=== PATIENT | female | born 1975 | race Caucasian/White ===

== ENCOUNTER 2017-09-01 21:28 | Inpatient (IN) | payer BC ==
[2017-09-01] MEDS ORDERED: NITROSTAT SL PRN (22:23)
[2017-09-01] MEDS ORDERED: PEPCID 20 MG IV PREMIX* 20 MG/50 ML BAG IV ONE (22:23)
--- NOTE | 2017-09-01 22:25 | DR.GENAD ---
HPI - PCP Primary Care Physician: ADDIE - HPI Comment HPI Comment: NAUSEA AND VOMITING ALSO. HAVE DM AND HTN. NO FEVER. - Complaint/Symptoms Chief Complaint Doctors Comments: PATIENT WITH CHEST AND EPIGASTRIC PAIN THAT IS WORSE TONIGHT. Chief Complaint:: CHEST/EPIGASTRIC PAIN - Nurses notes reviewed Nurses Notes Review: Yes - Source History Provided: Patient - Mode of Arrival Mode of Arrival: Ambulatory - Timing Onset of Chief Complaint: 09/01/17 Came on: Suddenly - Duration Duration: Constant Duration: Hours PMH - PMH Past Medical History: Yes Past Medical History: Depression, Diabetes, Hypertension Past Surgical History: Yes Surgical History: , OUTPATIENT PHYSICAL THERAPIST ASSISTANT Surgery, Lithotripsy - Family History History of Family Medical Conditions: Yes Family Medical History: Diabetes Mellitus, [place], Coronary Artery Disease, Hypertension - Social History Does patient currently use any type of tobacco product: Yes Have you used tobacco products in the last 12 months: Yes Type of Tobacco Use: Cigarettes Does any household member use tobacco: No Alcohol Use: Occasionally Do you use any recreational Drugs:: No Lives With: Family Lives Where: Home - infectious screening In the last 2 months have you had wt loss of >10#?: NO Have you had fever, night sweats or hemotysis?: No Have you traveled outside the country in the last 6 months?: No Isolation: Standard ROS - Review of Systems Constitutional: No Symptoms Reported Eyes: No Symptoms Reported ENTM: No Symptoms Reported Respiratoy: No Symptoms Reported Cardiovascular: Chest Pain Gastrointestinal/Abdominal: Abdominal Pain, Nausea Genitourinary: No Symptoms Reported Neurological: No Symptoms Reported Musculoskeletal: No Symptoms Reported Integumentary: No Symptoms Reported Hematologic/Lymphatic: No Symptoms Reported Endocrine: No Symptoms Reported All Other Systems: Reviewed and Negative PE - Vital Signs Vitals: Temperature 98.2 F Pulse Rate [Left Radial] 97 Pulse Rate 108 Respiratory Rate 16 Blood Pressure [Left Arm] 146/75 Blood Pressure 175/98 O2 Sat by Pulse Oximetry 96 - General Limitations: No Limitations General Appearance: Alert - Head Head Exam: Normal Inspection - Eyes Eye exam: Normal Appearance - ENT ENT Exam: Normal External Ear Exam External Ear Exam: Normal External Inspection TM/Canal Exam: Bilateral Normal Nose Exam: Normal Nose Exam Mouth Exam: Normal Inspection Throat Exam: Normal Inspection - Neck Neck Exam: Trachea Midline - Respiratory Respiratory Exam: Normal Lung Sounds Bilat Respiratory Exam: Bilateral Clear to Auscultation - Cardiovascular Cardiovascular Exam: Regular Rate, Normal Rhythm, Normal Heart Sounds - Abdominal Exam Abdominal Exam: Normal Bowel Sounds, Soft, Tenderness Abdominal Tenderness: Epigastrium, Moderate - Extremities Extremities Exam: Normal Inspection - Back Back Exam: Normal Inspection - Neurologic Neurological Exam: Alert, Oriented X3 - Psychiatric Psychiatric Exam: Normal Affect, Normal Mood - Skin Skin Exam: Normal Color MDM - Additional Information Additional Information Obtained From: Family - Differential Diagnosis Differential Diagnosis: CHEST PAIN, EPIGASTRIC PAIN Course - Treatment Treatment: SEE ORDERS. - Education/Counseling Education/Counseling: Patient, Family, Education Educated On: Diagnosis, Needs for Follow Up ROR - Labs Reviewed Laboratory Results Reviewed?: Yes Result Diagrams: 09/02/17 06:14 09/02/17 06:14 Laboratory: WBC 11.3 X10^3/uL (3.6-10.0) H 09/02/17 06:14 RBC 4.31 X10^6/uL (3.5-5.4) 09/02/17 06:14 Hgb 13.7 g/dL (12.0-16.0) 09/02/17 06:14 Hct 38.6 % (36.0-47.0) 09/02/17 06:14 MCV 89.5 fL (80.0-100.0) 09/02/17 06:14 MCH 31.8 pg (27.0-34.0) 09/02/17 06:14 MCHC 35.5 g/dL (33.0-35.0) H 09/02/17 06:14 RDW 12.7 % (11.6-16.5) 09/02/17 06:14 Plt Count 253 X10^3/uL (150.0-450.0) 09/02/17 06:14 MPV 7.9 fL (7.4-11.0) 09/02/17 06:14 Neut % 73.1 % (42.0-75.0) 09/02/17 06:14 Lymph % 20.1 % (21.0-51.0) L 09/02/17 06:14 [place] % 5.3 % (0.0-13.0) 09/02/17 06:14 Eos % 0.9 % (0.9-2.9) 09/02/17 06:14 Baso % 0.6 % (0.2-1.0) 09/02/17 06:14 Neut # 8.2 x10^3/uL (2.2-4.8) H 09/02/17 06:14 Lymph # 2.3 X10^3/uL (1.3-2.9) 09/02/17 06:14 [place] # 0.6 x10^3/uL (0.3-0.8) 09/02/17 06:14 Eos # 0.1 x10^3/uL (0.0-0.2) 09/02/17 06:14 Baso # 0.1 X10^3/uL (0.0-0.1) 09/02/17 06:14 Absolute Nucleated RBC 0.0 /100WBC 09/02/17 06:14 INR Target Range - 09/02/17 06:14 INR 1.02 (0.8-1.3) 09/02/17 06:14 PTT 27.9 SECONDS (22.9-36.5) 09/02/17 06:14 PTT Comment - 09/02/17 06:14 D-Dimer 165 ng/mL (0-400) 09/01/17 22:34 Sodium 137 mmol/L (136-145) 09/02/17 06:14 Corrected Sodium 139 mmol/L (136-145) 09/02/17 06:14 Potassium 3.5 mmol/L (3.5-5.1) 09/02/17 06:14 Chloride 103 mmol/L (98-107) 09/02/17 06:14 Carbon Dioxide 23.4 mmol/L (21-32) 09/02/17 06:14 BUN 8 mg/dL (7-18) 09/02/17 06:14 Creatinine 0.56 mg/dL (0.55-1.02) 09/02/17 06:14 Est GFR (MDRD) Af Amer > 60 (>60) 09/02/17 06:14 Est GFR (MDRD) Non-Af > 60 (>60) 09/02/17 06:14 Glucose 203 mg/dL (65-99) H 09/02/17 06:14 Calcium 7.8 mg/dL (8.5-10.1) L 09/02/17 06:14 Corrected Calcium 8.5 mg/dL (8.5-10.1) 09/02/17 06:14 Magnesium 1.9 mg/dL (1.7-2.9) 09/01/17 22:34 Total Bilirubin 0.40 mg/dL (0.2-1.0) 09/02/17 06:14 AST < 6 Units/L (15-37) L 09/02/17 06:14 ALT 10 Units/L (12-78) L 09/02/17 06:14 Alkaline Phosphatase 51 Units/L (46-116) 09/02/17 06:14 Creatine Kinase 65 Units/L (26-192) 09/02/17 11:20 CK-MB (CK-2) 1.0 ng/mL (0-4.0) 09/02/17 11:20 CK/CKMB % Calc 1.5 % (<4) 09/02/17 11:20 Troponin I < 0.02 ng/mL (0-1.5) 09/02/17 11:20 Total Protein 6.3 g/dL (6.4-8.2) L 09/02/17 06:14 Albumin 3.1 g/dL (3.4-5.0) L 09/02/17 06:14 Globulin 3.2 g/dL (2.5-4.5) 09/02/17 06:14 Albumin/Globulin Ratio 1.0 Ratio (1.1-2.1) L 09/02/17 06:14 Triglycerides 548 mg/dL (0-150) H 09/02/17 06:14 Cholesterol 248 mg/dL (0-200) H 09/02/17 06:14 LDL Cholesterol, Calc 112 mg/dL (0-100) H 09/02/17 06:14 HDL Cholesterol 26 mg/dL (40-60) L 09/02/17 06:14 Cholesterol/HDL Ratio 9.5 (0.0-5.0) H 09/02/17 06:14 Amylase 135 Units/L (25-115) H 09/01/17 22:34 Lipase 1725 Units/L (73-393) H 09/01/17 22:34 Specimen Type Clean catch urine 09/01/17 23:41 Urine Color Yellow (YELLOW) 09/01/17 23:41 Urine Appearance Clear (CLEAR) 09/01/17 23:41 Urine pH 5.0 (5.0 - 8.0) 09/01/17 23:41 Ur Specific [place] 1.015 (1.000-1.030) 09/01/17 23:41 Urine Protein 1+ (NEGATIVE) 09/01/17 23:41 Urine Glucose (UA) Negative (NEGATIVE) 09/01/17 23:41 Urine Ketones Negative (NEGATIVE) 09/01/17 23:41 Urine Occult Blood Negative (NEGATIVE) 09/01/17 23:41 Urine Nitrite Negative (NEGATIVE) 09/01/17 23:41 Urine Bilirubin Negative (NEGATIVE) 09/01/17 23:41 Urine Urobilinogen Normal (NORMAL) 09/01/17 23:41 Ur Leukocyte Esterase 3+ (NEGATIVE) 09/01/17 23:41 Urine RBC 0-3 /HPF (NEGATIVE) 09/01/17 23:41 Urine WBC 5-10 /HPF (NEGATIVE) 09/01/17 23:41 Ur Squamous Epith Cells Moderate /HPF (NEGATIVE) 09/01/17 23:41 Urine Bacteria 1+ /HPF (NEGATIVE) 09/01/17 23:41 Ur Culture Indicated? Yes/culture set up 09/01/17 23:41 Acetone, Semi-Quant Negative (NEGATIVE) 09/02/17 01:22 H. pylori IgG Antibody Negative (NEGATIVE) 09/01/17 22:34 - XRAY XRAY Interpreted by: Radiologist XRAY Findings: REPORT DICUSS WITH PATIENT. - EKG Rhythm: NSR (EKG NOTED) - Diagnosis Discharge Problem: Epigastric pain Chest pain Qualifiers: Chest pain type: unspecified Qualified Code(s): R07.9 - Chest pain, unspecified UTI (urinary tract infection) Qualifiers: Urinary tract infection type: site unspecified Hematuria presence: without hematuria Qualified Code(s): N39.0 - Urinary tract infection, site not specified Pancreatitis Qualifiers: Chronicity: acute Pancreatitis type: unspecified pancreatitis type Acute pancreatitis complication: unspecified Qualified Code(s): K85.90 - Acute pancreatitis without necrosis or infection, unspecified - Discharge Plan Disposition: ADMITTED INPATIENT Condition: Stable - Follow ups/Referrals - Instructions
[2017-09-01 22:42] LABS: BASOPHILS # (AUTO) 0.1 X10^3/uL (0.0-0.1); EOSINOPHILS # (AUTO) 0.1 x10^3/uL (0.0-0.2); EOSINOPHILS % (AUTO) 0.8 % (0.9-2.9)
[2017-09-01] MEDS: ASPIRIN 81 MG CHEWTAB PO SCH (22:44)
--- NOTE | 2017-09-01 22:53 | RAD ---
Indication: Chest pain Exam: Portable chest Comparison: None. Findings: The heart is normal. The pulmonary vessels are normal. There is overlying EKG lead artifact . No consolidation or effusion is seen. The bones are intact. Impression: Overlying EKG lead artifact otherwise, unremarkable. Reported By:
[2017-09-01 22:59] LABS: BLOOD UREA NITROGEN 7 mg/dL (7-18); CALCIUM 7.9 mg/dL (8.5-10.1); CARBON DIOXIDE 17.9 mmol/L (21-32); CHLORIDE 100 mmol/L (98-107); COR NA(FOR HYPERGLY) 138 mmol/L (136-145); CREATININE 0.62 mg/dL (0.55-1.02); SODIUM 136 mmol/L (136-145); TROPONIN I < 0.02 ng/mL (0-1.5); eGFR BLACK RACES > 60 (>60); eGFR NON BLACK RACES > 60 (>60)
[2017-09-01 23:01] LABS: BASOPHILS % (AUTO) 0.6 % (0.2-1.0); HEMATOCRIT 41.3 % (36.0-47.0); HEMOGLOBIN 14.8 g/dL (12.0-16.0); LYMPHOCYTES # (AUTO) 2.6 X10^3/uL (1.3-2.9); LYMPHOCYTES % (AUTO) 18.5 % (21.0-51.0); MEAN CORPUSCULAR HEMOGLOBIN 32.1 pg (27.0-34.0); MEAN CORPUSCULAR HGB CONC 35.9 g/dL (33.0-35.0); MEAN CORPUSCULAR VOLUME 89.4 fL (80.0-100.0); MEAN PLATELET VOLUME 8.1 fL (7.4-11.0); MONOCYTES # (AUTO) 0.6 x10^3/uL (0.3-0.8); MONOCYTES % (AUTO) 4.4 % (0.0-13.0); NEUTROPHILS # (AUTO) 10.6 x10^3/uL (2.2-4.8); NEUTROPHILS % (AUTO) 75.7 % (42.0-75.0); PLATELET COUNT 270 X10^3/uL (150.0-450.0); RED BLOOD COUNT 4.62 X10^6/uL (3.5-5.4); RED CELL DISTRIBUTION WIDTH 12.2 % (11.6-16.5)
[2017-09-01 23:03] LABS: ALBUMIN 3.4 g/dL (3.4-5.0); ALKALINE PHOSPHATASE 60 Units/L (46-116); CKMB % 1.5 % (<4); CREATINE KINASE 81 Units/L (26-192); CREATINE KINASE MB 1.2 ng/mL (0-4.0); TOTAL PROTEIN 6.7 g/dL (6.4-8.2)
[2017-09-01] MEDS ORDERED: MORPHINE SULFATE INJ 4 MG IVP ONE (23:38)
[2017-09-01] MEDS ORDERED: ZOFRAN INJ 4 MG VIAL IVP ONE (23:38)
[2017-09-01 23:49] LABS: AMYLASE 135 Units/L (25-115)
[2017-09-01 23:50] LABS: LIPASE 1725 Units/L (73-393)
[2017-09-02 00:22] LABS: BILIRUBIN,URINE NEGATIVE (NEGATIVE); BLOOD/HEMOGLOBIN,URINE NEGATIVE (NEGATIVE); GLUCOSE, URINE NEGATIVE (NEGATIVE); KETONES,URINE NEGATIVE (NEGATIVE); LEUKOCYTE ESTERASE ,URINE 3+ (NEGATIVE); NITRITES,URINE NEGATIVE (NEGATIVE); PROTEIN,URINE 1+ (NEGATIVE); UROBILINOGEN,URINE NORMAL (NORMAL)
[2017-09-02 00:26] LABS: ALANINE AMINOTRANSFERASE 20.4 Units/L (12-78); ASPARTATE AMINO TRANSFERASE 14.4 Units/L (15-37)
[2017-09-02 00:34] LABS: APPEARANCE,URINE CLEAR (CLEAR); BACTERIA,URINE 1+ /HPF (NEGATIVE); COLOR,URINE YELLOW (YELLOW); RBC,URINE 0-3 /HPF (NEGATIVE); SQUAMOUS EPITHELIAL CELL,UR MODERATE /HPF (NEGATIVE)
--- NOTE | 2017-09-02 00:48 | CT ---
CT abdomen and pelvis without contrast Indication: Chest and back pain Comparison: None available Technique: Multiple axial images of the abdomen and pelvis were obtained from the lung bases to the pubic symphy sis without the administration of IV contrast. Findings: The lung bases are clear. Given limitations of a noncontrast examination no focal hepatic lesion. The gallbladder, bile ducts, spleen and adrenal glands are normal. There is moderate peripancreatic stra nding noted consistent with pancreatitis. No localizing fluid collection. Neither kidney demonstrates evidence of nephrolithiasis, hydronephrosis or mass. Upper GI tract without evidence of mass or obst ruction. Urinary bladder is normal. IUD is in expected positioning. There is an approximate 2.[address] within the right adnexa on axial image 67. The rectum the and colon are normal. The appendix is wi thin normal limits and extends into the cranial most aspect of the right inguinal canal. Abdominal ao rta is normal in caliber. Multiple shotty peripancreatic and mesenteric lymph nodes are noted. Tiny f at containing paraumbilical hernia. Review of bone windows demonstrates no acute osseous abnormality. Impression: 1.Acute pancreatitis without localizing fluid collection identified to suggest pseudocyst or abscess. Evaluation for pancreatic necrosis is not possible given lack of IV contrast administration. Correla tion with lipase levels is recommended. 2. Small right adnexal/ovarian cyst, likely physiologic. 3. The appendix is normal however does have and abnormal course into the cranial most aspect of the r ight inguinal canal. 4. Expected positioning of IUD. Reported By:
[2017-09-02] MEDS ORDERED: ZOFRAN INJ 4 MG VIAL IVP PRN (01:48)
[2017-09-02] MEDS ORDERED: PHENERGAN INJ 25 MG IV PRN (01:48)
[2017-09-02 03:01] VITALS: BMI 30.9
[2017-09-02] MEDS ORDERED: ZOSYN VIAL 3.375 GM IV ONE (03:04)
[2017-09-02] MEDS ORDERED: NS 100 ML IV 100 ML IV ONE (03:04)
[2017-09-02] MEDS: ZOSYN VIAL 3.375 GM 3.375 GM in NS 100 ML IV + SPIKE MINIBAG* 100 ML IV SCH ×4 (03:12→21:03)
[2017-09-02] MEDS: NS + KCL 40 MEQ/L 1,000 ML IV SCH ×3 (03:21→18:56)
[2017-09-02] MEDS: MORPHINE SULFATE INJ 4 MG IVP PRN ×3 (04:44→20:50)
[2017-09-02 06:31] LABS: BASOPHILS # (AUTO) 0.1 X10^3/uL (0.0-0.1); BASOPHILS % (AUTO) 0.6 % (0.2-1.0); EOSINOPHILS # (AUTO) 0.1 x10^3/uL (0.0-0.2); EOSINOPHILS % (AUTO) 0.9 % (0.9-2.9); HEMATOCRIT 38.6 % (36.0-47.0); HEMOGLOBIN 13.7 g/dL (12.0-16.0); LYMPHOCYTES # (AUTO) 2.3 X10^3/uL (1.3-2.9); LYMPHOCYTES % (AUTO) 20.1 % (21.0-51.0); MEAN CORPUSCULAR HEMOGLOBIN 31.8 pg (27.0-34.0); MEAN CORPUSCULAR HGB CONC 35.5 g/dL (33.0-35.0); MEAN CORPUSCULAR VOLUME 89.5 fL (80.0-100.0); MEAN PLATELET VOLUME 7.9 fL (7.4-11.0); MONOCYTES # (AUTO) 0.6 x10^3/uL (0.3-0.8); MONOCYTES % (AUTO) 5.3 % (0.0-13.0); NEUTROPHILS # (AUTO) 8.2 x10^3/uL (2.2-4.8); NEUTROPHILS % (AUTO) 73.1 % (42.0-75.0); PLATELET COUNT 253 X10^3/uL (150.0-450.0); RED BLOOD COUNT 4.31 X10^6/uL (3.5-5.4); RED CELL DISTRIBUTION WIDTH 12.7 % (11.6-16.5); WHITE BLOOD COUNT 11.3 X10^3/uL (3.6-10.0)
[2017-09-02 06:44] LABS: ALANINE AMINOTRANSFERASE 10 Units/L (12-78); ALBUMIN 3.1 g/dL (3.4-5.0); ALKALINE PHOSPHATASE 51 Units/L (46-116); ASPARTATE AMINO TRANSFERASE < 6 Units/L (15-37); BLOOD UREA NITROGEN 8 mg/dL (7-18); CALCIUM 7.8 mg/dL (8.5-10.1); CARBON DIOXIDE 23.4 mmol/L (21-32); CHLORIDE 103 mmol/L (98-107); CHOL/HDL RATIO 9.5 (0.0-5.0); CHOLESTEROL 248 mg/dL (0-200); COR CA(FOR HYPOALB) 8.5 mg/dL (8.5-10.1); COR NA(FOR HYPERGLY) 139 mmol/L (136-145); CREATININE 0.56 mg/dL (0.55-1.02); HDL CHOLESTEROL 26 mg/dL (40-60); SODIUM 137 mmol/L (136-145); TOTAL PROTEIN 6.3 g/dL (6.4-8.2); TRIGLYCERIDES 548 mg/dL (0-150); eGFR BLACK RACES > 60 (>60); eGFR NON BLACK RACES > 60 (>60)
[2017-09-02 07:11] LABS: CKMB % 1.6 % (<4); CREATINE KINASE 64 Units/L (26-192); TROPONIN I < 0.02 ng/mL (0-1.5)
[2017-09-02] MEDS: PEPCID 20 MG IV PREMIX* 20 MG/50 ML BAG IV SCH ×2 (09:13→20:44)
[2017-09-02] MEDS: ASPIRIN 81 MG CHEWTAB PO SCH (09:13)
--- NOTE | 2017-09-02 09:38 | US ---
HISTORY: Abdominal pain Study: Right upper quadrant ultrasound Comparison: None Technique: Multiple grayscale sonographic images were obtained. Findings: The liver appeared normal in size and configuration and without evidence for cyst, mass, or biliary d uctal dilatation. The head and body of the pancreas appeared within normal limits. The tail was obscu red by overlying bowel gas. No gallstones are present within the gallbladder. Gallbladder wall thickn ess was normal. The common duct measured 4.5 mm. The right kidney was unobstructed. IMPRESSION: No evidence for cholelithiasis or cholecystitis Reported By:
[2017-09-02 11:53] LABS: CKMB % 1.5 % (<4); CREATINE KINASE 65 Units/L (26-192); TROPONIN I < 0.02 ng/mL (0-1.5)
[2017-09-03] MEDS: NS + KCL 40 MEQ/L 1,000 ML IV SCH ×2 (02:24→11:11)
[2017-09-03] MEDS: ZOSYN VIAL 3.375 GM 3.375 GM in NS 100 ML IV + SPIKE MINIBAG* 100 ML IV SCH ×2 (05:53→14:03)
[2017-09-03 06:28] LABS: BASOPHILS # (AUTO) 0.1 X10^3/uL (0.0-0.1); BASOPHILS % (AUTO) 0.5 % (0.2-1.0); EOSINOPHILS # (AUTO) 0.2 x10^3/uL (0.0-0.2); EOSINOPHILS % (AUTO) 1.9 % (0.9-2.9); HEMATOCRIT 35.7 % (36.0-47.0); HEMOGLOBIN 12.6 g/dL (12.0-16.0); LYMPHOCYTES # (AUTO) 2.2 X10^3/uL (1.3-2.9); LYMPHOCYTES % (AUTO) 22.8 % (21.0-51.0); MEAN CORPUSCULAR HEMOGLOBIN 32.1 pg (27.0-34.0); MEAN CORPUSCULAR HGB CONC 35.4 g/dL (33.0-35.0); MEAN CORPUSCULAR VOLUME 90.8 fL (80.0-100.0); MEAN PLATELET VOLUME 8.5 fL (7.4-11.0); MONOCYTES # (AUTO) 0.5 x10^3/uL (0.3-0.8); MONOCYTES % (AUTO) 5.3 % (0.0-13.0); NEUTROPHILS # (AUTO) 6.7 x10^3/uL (2.2-4.8); NEUTROPHILS % (AUTO) 69.5 % (42.0-75.0); PLATELET COUNT 230 X10^3/uL (150.0-450.0); RED BLOOD COUNT 3.93 X10^6/uL (3.5-5.4); WHITE BLOOD COUNT 9.6 X10^3/uL (3.6-10.0)
[2017-09-03 07:24] LABS: ALANINE AMINOTRANSFERASE 15 Units/L (12-78); ALBUMIN 2.7 g/dL (3.4-5.0); ALKALINE PHOSPHATASE 45 Units/L (46-116); AMYLASE 22 Units/L (25-115); ASPARTATE AMINO TRANSFERASE 7 Units/L (15-37); BLOOD UREA NITROGEN 5 mg/dL (7-18); CALCIUM 7.5 mg/dL (8.5-10.1); CARBON DIOXIDE 21.8 mmol/L (21-32); CHLORIDE 106 mmol/L (98-107); COR CA(FOR HYPOALB) 8.5 mg/dL (8.5-10.1); COR NA(FOR HYPERGLY) 138 mmol/L (136-145); CREATININE 0.55 mg/dL (0.55-1.02); LIPASE 347 Units/L (73-393); SODIUM 137 mmol/L (136-145); TOTAL PROTEIN 5.9 g/dL (6.4-8.2); eGFR BLACK RACES > 60 (>60); eGFR NON BLACK RACES > 60 (>60)
[2017-09-03] MEDS: ASPIRIN 81 MG CHEWTAB PO SCH (08:34)
[2017-09-03] MEDS: PEPCID 20 MG IV PREMIX* 20 MG/50 ML BAG IV SCH ×2 (08:35→11:10)
[2017-09-03 12:58] VITALS: BP 107/55
== END 2017-09-03 14:00 | disposition home or self-care (01) | DRG 440 ==
LOC: ER 21:53 → MED/SURG 09-02 02:05
PROVIDERS: ADMIT Obstetrics & Gynecology Obstetrics; ATTEND Obstetrics & Gynecology Obstetrics
DX: K85.90 Acute pancreatitis without necrosis or infection, unspecified (principal); R07.89 Other chest pain; R10.13 Epigastric pain; I10 Essential (primary) hypertension; E11.65 Type 2 diabetes mellitus with hyperglycemia; E78.1 Pure hyperglyceridemia; R10.84 Generalized abdominal pain
CPT/HCPCS: 36415; 36600; 71045; 74176; 76705; 80053; 80061; 81001; 82009; 82150; 82550; 82553; 83690; 83735; 84484; 85025; 85378; 85610; 85730; 86677; 87086; 93005; 93010; 94760; 96365; 96367; 96374; 96375; 99284; A4222; S0028; J2270; J2405; J2543

== ENCOUNTER 2018-07-13 18:16 | Inpatient (IN) ==
[2018-07-13] MEDS ORDERED: NS 1000 ML 1,000 ML IV ONE ×2 (18:42→22:18)
[2018-07-13] MEDS ORDERED: NS 1000 ML 1,000 ML ONE ×2 (18:43→22:10)
[2018-07-13 18:59] LABS: BILIRUBIN,URINE NEGATIVE (NEGATIVE); BLOOD/HEMOGLOBIN,URINE NEGATIVE (NEGATIVE); GLUCOSE, URINE NEGATIVE (NEGATIVE); KETONES,URINE 1+ (NEGATIVE); LEUKOCYTE ESTERASE ,URINE NEGATIVE (NEGATIVE); NITRITES,URINE NEGATIVE (NEGATIVE); PROTEIN,URINE 2+ (NEGATIVE); UROBILINOGEN,URINE NORMAL (NORMAL)
[2018-07-13 19:00] LABS: APPEARANCE,URINE CLEAR (CLEAR); COLOR,URINE YELLOW (YELLOW)
[2018-07-13 19:01] LABS: BASOPHILS # (AUTO) 0.1 X10^3/uL (0.0-0.1); BASOPHILS % (AUTO) 0.5 % (0.2-1.0); EOSINOPHILS # (AUTO) 0.1 x10^3/uL (0.0-0.2); EOSINOPHILS % (AUTO) 0.9 % (0.9-2.9); HEMATOCRIT 44.6 % (36.0-47.0); LYMPHOCYTES # (AUTO) 2.2 X10^3/uL (1.3-2.9); LYMPHOCYTES % (AUTO) 16.5 % (21.0-51.0); MEAN CORPUSCULAR VOLUME 92.2 fL (80.0-100.0); MEAN PLATELET VOLUME 8.4 fL (7.4-11.0); MONOCYTES # (AUTO) 0.5 x10^3/uL (0.3-0.8); MONOCYTES % (AUTO) 3.5 % (0.0-13.0); NEUTROPHILS # (AUTO) 10.6 x10^3/uL (2.2-4.8); NEUTROPHILS % (AUTO) 78.6 % (42.0-75.0); PLATELET COUNT 330 X10^3/uL (150.0-450.0); RED BLOOD COUNT 4.83 X10^6/uL (3.5-5.4); RED CELL DISTRIBUTION WIDTH 12.7 % (11.6-16.5); WHITE BLOOD COUNT 13.5 X10^3/uL (3.6-10.0)
[2018-07-13 19:29] LABS: HEMOGLOBIN 14.7 g/dL (12.0-16.0); MEAN CORPUSCULAR HEMOGLOBIN 31.9 pg (27.0-34.0); MEAN CORPUSCULAR HGB CONC 34.4 g/dL (33.0-35.0)
[2018-07-13] MEDS ORDERED: ZOFRAN INJ 4 MG VIAL IVP ONE ×2 (19:33→21:42)
[2018-07-13] MEDS ORDERED: DEMEROL INJ IVP ONE (19:34)
[2018-07-13] MEDS ORDERED: ZOFRAN INJ 4 MG VIAL ONE ×2 (19:37→21:43)
[2018-07-13] MEDS ORDERED: DEMEROL INJ ONE (19:38)
[2018-07-13 19:48] LABS: BACTERIA,URINE NEGATIVE /HPF (NEGATIVE); MUCUS,URINE FEW /HPF (NEGATIVE); RBC,URINE 0-2 /HPF (NONE SEEN); SQUAMOUS EPITHELIAL CELL,UR MODERATE /HPF (NEGATIVE)
[2018-07-13 19:52] LABS: BLOOD UREA NITROGEN 15.6 mg/dL (7-18); CARBON DIOXIDE 18.7 mmol/L (21-32); CHLORIDE 94 mmol/L (98-107); COR NA(FOR HYPERGLY) 128 mmol/L (136-145); CREATININE 0.47 mg/dL (0.55-1.02); eGFR NON BLACK RACES > 60 (>60)
[2018-07-13 19:53] LABS: ALANINE AMINOTRANSFERASE 26.4 Units/L (12-78); ALBUMIN 3.8 g/dL (3.4-5.0); ALKALINE PHOSPHATASE 69.6 Units/L (46-116); AMYLASE 151.2 Units/L (25-115); ASPARTATE AMINO TRANSFERASE 28.8 Units/L (15-37); CALCIUM 7.1 mg/dL (8.5-10.1); LIPASE 2419.2 Units/L (73-393); TOTAL PROTEIN 6.6 g/dL (6.4-8.2)
[2018-07-13] MEDS ORDERED: DILAUDID INJ IVP ONE (21:42)
[2018-07-13] MEDS ORDERED: DILAUDID INJ ONE (21:44)
[2018-07-13] MEDS ORDERED: PEPCID 20 MG IV PREMIX* 20 MG/50 ML BAG IV ONE ×2 (21:48→22:10)
--- NOTE | 2018-07-13 21:54 | ED.ABDFE ---
HPI Time Seen Time Seen by Provider: 07/13/18 18:57 PCP Primary Care Physician: ADDIE [facility] Chief Complaint Comments: ABDOMINAL PAIN Chief Complaint:: UPPER ABDOMEN PAIN THAT RADIATES TO CHEST AND BACK. N/V. DEN IES DIARRHEA AND FEVER. 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 Family History History of Family Medical Conditions: Yes Family Medical History: Diabetes Mellitus, [place], Coronary Artery Disease and Hypertension Social History Does patient currently use any type of tobacco product: Yes Have you used tobacco products in the last 12 months: Yes Type of Tobacco Use: Cigarettes How many years tobacco product used: 20 Does any household member use tobacco: Yes Alcohol Use: Occasionally Do you use any recreational Drugs:: No Lives With: Spouse Lives Where: Home infectious screening In the last 2 months have you had wt loss of >10#?: NO Have you had fever, night sweats or hemotysis?: No Have you traveled outside the country in the last 6 months?: No Isolation: Standard ROS Review of Systems Constitutional: No Symptoms Reported; negative Fever Eyes: No Symptoms Reported ENTM: No Symptoms Reported Respiratoy: No Symptoms Reported Cardiovascular: Chest Pain Gastrointestinal/Abdominal: Abdominal Pain and Nausea Neurological: No Symptoms Reported Musculoskeletal: No Symptoms Reported Integumentary: No Symptoms Reported Hematologic/Lymphatic: No Symptoms Reported Endocrine: No Symptoms Reported Psychiatric: No Symptoms Reported All Other Systems: Reviewed and Negative PE Vital Signs Vitals: Temperature 97.4 F Pulse Rate [Right Radial] 87 Pulse Rate 95 Respiratory Rate 18 Blood Pressure [Right Arm] 125/72 Blood Pressure [Left Arm] 107/55 Blood Pressure 177/91 O2 Sat by Pulse Oximetry 97 General Limitations: No Limitations General Appearance: Alert and In No Apparent Distress Head Head Exam: Normal Inspection Eyes Eye exam: Normal Appearance, PERRL and EOMI; negative Scleral Icterus and C onjunctival Injection ENT ENT Exam: Normal Exam, Normal Oropharynx, Normal External Ear Exam and TM's Normal Bilaterally Neck Neck Exam: Trachea Midline Chest Chest Inspection: Symmetric Chest Wall Rise Respiratory Respiratory Exam: Normal Lung Sounds Bilat Respiratory Exam: Bilateral: Clear to Auscultation Cardiovascular Cardiovascular Exam: Regular Rate and Normal Rhythm Abdominal Exam Abdominal Exam: Normal Inspection, Normal Bowel Sounds and Soft; negative Tenderness Abdominal Tenderness: RUQ, LUQ, Epigastrium and Moderate Rectal Rectal Exam: Deferred Back Back Exam: Normal Inspection Extremeties Extremities Exam: Normal Inspection External Exam: Female: Deferred : Speculum Exam (Female): Deferred : Bimanual Exam (female): Deferred Neurologic Neurological Exam: Alert and Oriented X3 Psychiatric Psychiatric Exam: Normal Affect and Normal Mood Skin Skin Exam: Dry MDM Additional Information Obtained From Additional information provided by: Family Differential Diagnosis Differential Diagnosis- Considerations may include:: Bowel Obstruction, Cholcystitis, Cholelethiasis, Constipation, Diverticular disease, Gastritus/PUD, Pancreatitis, Urinary tract infection and Urolithiasis COURSE Treatment Treatment: SEE ORDERS. Education/Counseling Education/Counseling: Patient and Family Educated On: Diagnosis ROR Labs Reviewed Laboratory Results Reviewed?: Yes Result Diagrams: 07/13/18 18:50 07/13/18 18:50 Laboratory: WBC 13.5 X10^3/uL (3.6-10.0) H 07/13/18 18:50 RBC 4.83 X10^6/uL (3.5-5.4) 07/13/18 18:50 Hgb 14.7 g/dL (12.0-16.0) 07/13/18 18:50 Hct 44.6 % (36.0-47.0) 07/13/18 18:50 MCV 92.2 fL (80.0-100.0) 07/13/18 18:50 MCH 31.9 pg (27.0-34.0) 07/13/18 18:50 MCHC 34.4 g/dL (33.0-35.0) 07/13/18 18:50 RDW 12.7 % (11.6-16.5) 07/13/18 18:50 Plt Count 330 X10^3/uL (150.0-450.0) 07/13/18 18:50 MPV 8.4 fL (7.4-11.0) 07/13/18 18:50 Neut % (Auto) 78.6 % (42.0-75.0) H 07/13/18 18:50 Lymph % (Auto) 16.5 % (21.0-51.0) L 07/13/18 18:50 [place] % (Auto) 3.5 % (0.0-13.0) 07/13/18 18:50 Eos % (Auto) 0.9 % (0.9-2.9) 07/13/18 18:50 Baso % (Auto) 0.5 % (0.2-1.0) 07/13/18 18:50 Neut # (Auto) 10.6 x10^3/uL (2.2-4.8) H 07/13/18 18:50 Lymph # (Auto) 2.2 X10^3/uL (1.3-2.9) 07/13/18 18:50 [place] # (Auto) 0.5 x10^3/uL (0.3-0.8) 07/13/18 18:50 Eos # (Auto) 0.1 x10^3/uL (0.0-0.2) 07/13/18 18:50 Baso # (Auto) 0.1 X10^3/uL (0.0-0.1) 07/13/18 18:50 Absolute Nucleated RBC 0.1 /100WBC 07/13/18 18:50 Sodium 126 mmol/L (136-145) L 07/13/18 18:50 Corrected Sodium 128 mmol/L (136-145) L 07/13/18 18:50 Potassium 4.2 mmol/L (3.5-5.1) 07/13/18 18:50 Chloride 94 mmol/L (98-107) L 07/13/18 18:50 Carbon Dioxide 18.7 mmol/L (21-32) L 07/13/18 18:50 BUN 15.6 mg/dL (7-18) 07/13/18 18:50 Creatinine 0.47 mg/dL (0.55-1.02) L 07/13/18 18:50 Est GFR (MDRD) Af Amer > 60 (>60) 07/13/18 18:50 Est GFR (MDRD) Non-Af > 60 (>60) 07/13/18 18:50 Glucose 176.4 mg/dL (65-99) H 07/13/18 18:50 Calcium 7.1 mg/dL (8.5-10.1) L 07/13/18 18:50 Corrected Calcium TNP 07/13/18 18:50 Total Bilirubin 0.36 mg/dL (0.2-1.0) 07/13/18 18:50 AST 28.8 Units/L (15-37) 07/13/18 18:50 ALT 26.4 Units/L (12-78) 07/13/18 18:50 Alkaline Phosphatase 69.6 Units/L (46-116) 07/13/18 18:50 Total Protein 6.6 g/dL (6.4-8.2) 07/13/18 18:50 Albumin 3.8 g/dL (3.4-5.0) 07/13/18 18:50 Globulin 2.8 g/dL (2.5-4.5) 07/13/18 18:50 Albumin/Globulin Ratio 1.4 Ratio (1.1-2.1) 07/13/18 18:50 Amylase 151.2 Units/L (25-115) H 07/13/18 18:50 Lipase 2419.2 Units/L (73-393) H 07/13/18 18:50 Specimen Type Clean catch urine 07/13/18 18:35 Urine Color Yellow (YELLOW) 07/13/18 18:35 Urine Appearance Clear (CLEAR) 07/13/18 18:35 Urine pH 5.0 (5.0 - 8.0) 07/13/18 18:35 Ur Specific [place] 1.015 (1.000-1.030) 07/13/18 18:35 Urine Protein 2+ (NEGATIVE) 07/13/18 18:35 Urine Glucose (UA) Negative (NEGATIVE) 07/13/18 18:35 Urine Ketones 1+ (NEGATIVE) 07/13/18 18:35 Urine Occult Blood Negative (NEGATIVE) 07/13/18 18:35 Urine Nitrite Negative (NEGATIVE) 07/13/18 18:35 Urine Bilirubin Negative (NEGATIVE) 07/13/18 18:35 Urine Urobilinogen Normal (NORMAL) 07/13/18 18:35 Ur Leukocyte Esterase Negative (NEGATIVE) 07/13/18 18:35 Urine RBC 0-2 /HPF (NONE SEEN) 07/13/18 18:35 Urine WBC None seen /HPF (NONE SEEN) 12 18:35 Ur Squamous Epith Cells Moderate /HPF (NEGATIVE) 12 18:35 Urine Bacteria Negative /HPF (NEGATIVE) 07/13/18 18:35 Urine Mucus Few /HPF (NEGATIVE) 12 18:35 Ur Culture Indicated? No/not indicated 07/13/18 18:35 Other Results Comments: DISCUSS PATIENT WITH DR. VILLAGOMEZ. HE WILL ADMIT PATIENT. XRAY XRAY Interpreted by: Radiologist XRAY Findings: REPORT DISCUSS WITH PATIENT. Diagnosis Discharge Problem: Acute hyponatremia Acute pancreatitis Qualifiers: Pancreatitis type: unspecified pancreatitis type Acute pancreatitis complication: unspecified Qualified Code(s): K85.90 - Acute pancreatitis without necrosis or infection, unspecified
--- NOTE | 2018-07-13 22:20 | CT ---
CT abdomen and pelvis without contrast Indication: Upper abdominal pain that radiates to chest and back, nausea, vomiting, denies diarrhea and fever Technique: Helical CT images of the abdomen and pelvis were obtained without IV contrast. Reformatted images in the coronal and sagittal planes were also generated for review. Comparison: 09/02/2017 Findings: Lung bases are clear. No aggressive osseous lesions are identified. Within the limits of a noncontrast exam, the unenhanced liver, gallbladder, spleen, adrenals and kidneys are unremarkable. There is no urolithiasis or obstructive uropathy. There is moderate peripancreatic inflammatory stranding, most significant about the pancreatic body and tail, compatible with acute pancreatitis. Within the limits of a noncontrast exam, no drainable pancreatic or peripancreatic fluid collection is identified. Evaluation for necrosis is not possible without intravenous contrast. The unenhanced GI tract is without obstruction or gross inflammation. The appendix is normal. The abdominal aorta is minimally calcified without aneurysm. The urinary bladder is normal. An IUD is noted within the uterus. No free air, significant free fluid or bulky lymphadenopathy is identified. Impression: Acute pancreatitis without discrete drainable pancreatic or peripancreatic fluid collection to suggest pseudocyst or abscess. Again, evaluation for necrosis and additional associated complication is not possible without intravenous contrast. Reported By:
[2018-07-13] MEDS ORDERED: ZOFRAN INJ 4 MG VIAL IVP PRN (22:40)
[2018-07-13] MEDS: NS 1000 ML 1,000 ML IV SCH (23:50)
[2018-07-13 23:54] VITALS: BMI 30.9
[2018-07-14] MEDS ORDERED: MORPHINE SULFATE INJ 2 MG INJ IVP PRN (05:37)
[2018-07-14 06:22] LABS: BASOPHILS # (AUTO) 0.1 X10^3/uL (0.0-0.1); BASOPHILS % (AUTO) 0.7 % (0.2-1.0); EOSINOPHILS # (AUTO) 0.1 x10^3/uL (0.0-0.2); EOSINOPHILS % (AUTO) 0.6 % (0.9-2.9); HEMATOCRIT 39.4 % (36.0-47.0); HEMOGLOBIN 14.1 g/dL (12.0-16.0); LYMPHOCYTES % (AUTO) 17.1 % (21.0-51.0); MEAN CORPUSCULAR HGB CONC 35.7 g/dL (33.0-35.0); MEAN CORPUSCULAR VOLUME 92.6 fL (80.0-100.0); MEAN PLATELET VOLUME 8.5 fL (7.4-11.0); MONOCYTES # (AUTO) 0.6 x10^3/uL (0.3-0.8); MONOCYTES % (AUTO) 5.2 % (0.0-13.0); NEUTROPHILS # (AUTO) 8.9 x10^3/uL (2.2-4.8); NEUTROPHILS % (AUTO) 76.4 % (42.0-75.0); PLATELET COUNT 263 X10^3/uL (150.0-450.0); RED BLOOD COUNT 4.26 X10^6/uL (3.5-5.4); RED CELL DISTRIBUTION WIDTH 12.9 % (11.6-16.5); WHITE BLOOD COUNT 11.6 X10^3/uL (3.6-10.0)
[2018-07-14 06:35] LABS: ALBUMIN 2.9 g/dL (3.4-5.0); ALKALINE PHOSPHATASE 51 Units/L (46-116); AMYLASE 119 Units/L (25-115); BLOOD UREA NITROGEN 5 mg/dL (7-18); CALCIUM 6.7 mg/dL (8.5-10.1); CHLORIDE 103 mmol/L (98-107); COR CA(FOR HYPOALB) 7.6 mg/dL (8.5-10.1); COR NA(FOR HYPERGLY) 137 mmol/L (136-145); CREATININE 0.44 mg/dL (0.55-1.02); SODIUM 135 mmol/L (136-145); TOTAL PROTEIN 6.1 g/dL (6.4-8.2); eGFR NON BLACK RACES > 60 (>60)
[2018-07-14 07:06] LABS: CARBON DIOXIDE 10.7 mmol/L (21-32)
[2018-07-14 07:54] LABS: ALANINE AMINOTRANSFERASE 19 Units/L (12-78); ASPARTATE AMINO TRANSFERASE 20 Units/L (15-37)
--- NOTE | 2018-07-14 08:44 | US ---
Exam: Gallbladder ultrasound History: 43-year-old female with pancreatitis Comparison: Previous CT of the abdomen/pelvis from 07/13/2018 Findings: Liver is normal in size and echotexture with no focal abnormality seen. No intrahepatic biliary ductal dilatation is seen. Gallbladder is normal appearing with no cholelithiasis, gallbladder wall thickening, or localized tenderness. Common bile duct measures 5 mm in diameter. The right kidney measures 11 cm in length. No hydronephrosis, echogenic calculi, or renal mass is seen on the right. IVC is normal. Pancreas has a hyperechoic appearance. However no evidence of pancreatic mass or peripancreatic fluid collections. Impression: Pancreas has a hyperechoic appearance of. However there is no evidence of pancreatic mass or peripancreatic fluid collections. Remainder of the exam is unremarkable Reported By:
[2018-07-14 09:04] LABS: LIPASE 1637 Units/L (73-393)
[2018-07-14] MEDS: PEPCID 20 MG IV PREMIX* 20 MG/50 ML BAG IV SCH ×2 (09:11→21:57)
[2018-07-14] MEDS: NS 1000 ML 1,000 ML IV SCH ×2 (09:11→18:03)
--- NOTE | 2018-07-14 13:30 | DR.H&P ---
H&P - History & Physical for Day of: H&P Date: 07/13/18 - Chief Complaint Chief Complaint: abdominal pain - History of Present Illness History of Present Illness: 43 WF ER ADMISSION WITH INTRACTABLE ABDOMINAL PAIN WITH N/V. PT HAD CT SCAN OF ABD PELVIS IN ER WITH FINDINGS CONSISTENT WITH PANCREATITIS, ELEVATED AMLASE AND LIPASE. PT STATES SHE HAD SIMILIAR EPISODE AUG 2017. PT STATES SHE IS DM ON METFORMIN AND ACTOS. PT DENIES HTN. PT REPORTS INCREASED ETOH USE. PT ADMITTED FOR TREATMENT OF ACUTE ILLNESS - Past Medical History Past Medical History: Hypertension, Diabetes - Past Surgical History Surgical History: , TRAY SERVER Surgery, Lithotripsy - Family History Family Medical History: Diabetes Mellitus, [place], Coronary Artery Disease, Hypertension - Social History Does patient currently use any type of tobacco product: Yes Have you used tobacco products in the last 12 months: Yes Type of Tobacco Use: Cigarettes How many years tobacco product used: 20 Does any household member use tobacco: Yes Alcohol Use: Occasionally Drug Use: None - Medications Home Medications: Sulfa (Sulfonamide Antibiotics) [SULFA] Allergy (Verified 07/13/18 18:23) - Review of Systems Constitutional: Weakness Eyes: No Symptoms Reported ENT: No Symptoms Reported Respiratory: No Symptoms Reported Cardiovascular: No Symptoms Reported Gastrointestinal: Nausea, Vomiting, Abdominal Pain Genitourinary: No Symptoms Reported Musculoskeletal: No Symptoms Reported Skin: No Symptoms Reported Neurological: No Symptoms Reported - Physical Exam Vital Signs: Temperature 98.0 F Pulse Rate [Right Radial] 93 Pulse Rate 95 Respiratory Rate 22 Blood Pressure [Right Arm] 118/68 Blood Pressure [Left Arm] 131/65 Blood Pressure 177/91 O2 Sat by Pulse Oximetry 97 Oriented: Normal Eyes: Normal Ear: Normal Nose: Normal Throat: Normal Respiratory: Clear Throughout Cardiovascular: Normal : Dysuria Auscultation: Bowel Sounds: Increased Palpation: Normal Tenderness: RUQ, LUQ, Epigastric Skin: Normal Musculoskeletal: Normal Psychiatric: Anxiety Affect: Anxious Speech Pattern: Clear, Appropriate - Assessment/Plan (1) Abdominal pain Status: Acute Plan: ADMIT, GENTLE IV HYDRATION, PAIN AND NAUSEA CONTROL. IV NS, REPEAT AM AMYLASE AND LIPASE, NPO. GB US, HIDA SCAN. VERIFY HOME MEDICATION. BP MONITORING, BS CONTROL (2) Nausea and vomiting Status: Acute (3) Acute hyponatremia Status: Acute (4) Acute pancreatitis Qualifiers: Pancreatitis type: unspecified pancreatitis type Acute pancreatitis complication: unspecified Qualified Code(s): K85.90 - Acute pancreatitis without necrosis or infection, unspecified Status: Acute - Allergies Allergies/Adverse Reactions: Allergies Allergy/AdvReac Type Severity Reaction Status Date / Time Sulfa (Sulfonamide Allergy Verified 07/13/18 18:23 Antibiotics) [SULFA]
--- NOTE | 2018-07-14 13:42 | PCM.PROG ---
Progress Note - Progress Note for Day of Date of Exam: 07/14/18 - Subjective Subjective: 43 WF ER ADMISSION ONE DAY AGO WITH ACUTE PANCREATITIS. PT CONTINUES WITH UPPER ABDOMINAL PAIN, PT CURRENTLY NPO FOR HIDA SCAN, GB US THIS AM. PT AMYLASE 119, LIPASE 1637. NA IMPROVING TO 135. - Past Medical Family Social History Past Med/Fam/Surg Hx: No changes since H&P Allergies: Allergies Sulfa (Sulfonamide Antibiotics) [SULFA] Allergy (Verified 07/13/18 18:23) - Review of Systems ROS: No change since H&P - Vital Signs and I&O's Vital Signs: Temperature 98.0 F Pulse Rate [Right Radial] 93 Pulse Rate 95 Respiratory Rate 22 Blood Pressure [Right Arm] 118/68 Blood Pressure [Left Arm] 131/65 Blood Pressure 177/91 O2 Sat by Pulse Oximetry 97 Intake and Output: Intake & Output 07/12/18 07/13/18 07/14/18 07/15/18 11:59 11:59 11:59 11:59 Intake Total 1462 / 1462 Balance 1462 / 1462 - Physical Exam Oriented: Normal Eyes: Normal Ear: Normal Nose: Normal Throat: Normal Respiratory: Normal Cardiovascular: Normal : Dysuria Auscultation: Bowel Sounds: Increased Tenderness: RUQ, LUQ, Epigastric Skin: Normal Musculoskeletal: Normal Psychiatric: Anxiety Affect: Anxious Speech Pattern: Clear, Appropriate - Laboratory and Diagnostics Result Diagrams: 07/14/18 05:31 07/14/18 05:31 Labs: Laboratory WBC 11.6 X10^3/uL (3.6-10.0) H 07/14/18 05:31 RBC 4.26 X10^6/uL (3.5-5.4) 07/14/18 05:31 Hgb 14.1 g/dL (12.0-16.0) 07/14/18 05:31 Hct 39.4 % (36.0-47.0) 07/14/18 05:31 MCV 92.6 fL (80.0-100.0) 07/14/18 05:31 MCH 33.0 pg (27.0-34.0) 07/14/18 05:31 MCHC 35.7 g/dL (33.0-35.0) H 07/14/18 05:31 RDW 12.9 % (11.6-16.5) 07/14/18 05:31 Plt Count 263 X10^3/uL (150.0-450.0) 07/14/18 05:31 MPV 8.5 fL (7.4-11.0) 07/14/18 05:31 Neut % (Auto) 76.4 % (42.0-75.0) H 07/14/18 05:31 Lymph % (Auto) 17.1 % (21.0-51.0) L 07/14/18 05:31 [place] % (Auto) 5.2 % (0.0-13.0) 07/14/18 05:31 Eos % (Auto) 0.6 % (0.9-2.9) L 07/14/18 05:31 Baso % (Auto) 0.7 % (0.2-1.0) 07/14/18 05:31 Neut # (Auto) 8.9 x10^3/uL (2.2-4.8) H 07/14/18 05:31 Lymph # (Auto) 2.0 X10^3/uL (1.3-2.9) 07/14/18 05:31 [place] # (Auto) 0.6 x10^3/uL (0.3-0.8) 07/14/18 05:31 Eos # (Auto) 0.1 x10^3/uL (0.0-0.2) 07/14/18 05:31 Baso # (Auto) 0.1 X10^3/uL (0.0-0.1) 07/14/18 05:31 Absolute Nucleated RBC 0.1 /100WBC 07/14/18 05:31 Sodium 135 mmol/L (136-145) L 07/14/18 05:31 Corrected Sodium 137 mmol/L (136-145) 07/14/18 05:31 Potassium 4.1 mmol/L (3.5-5.1) 07/14/18 05:31 Chloride 103 mmol/L (98-107) 07/14/18 05:31 Carbon Dioxide 10.7 mmol/L (21-32) L* 07/14/18 05:31 BUN 5 mg/dL (7-18) L 07/14/18 05:31 Creatinine 0.44 mg/dL (0.55-1.02) L 07/14/18 05:31 Est GFR (MDRD) Af Amer > 60 (>60) 07/14/18 05:31 Est GFR (MDRD) Non-Af > 60 (>60) 07/14/18 05:31 Glucose 204 mg/dL (65-99) H 07/14/18 05:31 Hemoglobin A1c 7.4 % 07/14/18 05:31 Calcium 6.7 mg/dL (8.5-10.1) L 07/14/18 05:31 Corrected Calcium 7.6 mg/dL (8.5-10.1) L 07/14/18 05:31 Total Bilirubin 0.50 mg/dL (0.2-1.0) 07/14/18 05:31 AST 20 Units/L (15-37) 07/14/18 05:31 ALT 19 Units/L (12-78) 07/14/18 05:31 Alkaline Phosphatase 51 Units/L (46-116) 07/14/18 05:31 Total Protein 6.1 g/dL (6.4-8.2) L 07/14/18 05:31 Albumin 2.9 g/dL (3.4-5.0) L 07/14/18 05:31 Globulin 3.2 g/dL (2.5-4.5) 07/14/18 05:31 Albumin/Globulin Ratio 0.9 Ratio (1.1-2.1) L 07/14/18 05:31 Amylase 119 Units/L (25-115) H 07/14/18 05:31 Lipase 1637 Units/L (73-393) H 07/14/18 05:31 Specimen Type Clean catch urine 07/13/18 18:35 Urine Color Yellow (YELLOW) 07/13/18 18:35 Urine Appearance Clear (CLEAR) 07/13/18 18:35 Urine pH 5.0 (5.0 - 8.0) 07/13/18 18:35 Ur Specific [place] 1.015 (1.000-1.030) 07/13/18 18:35 Urine Protein 2+ (NEGATIVE) 07/13/18 18:35 Urine Glucose (UA) Negative (NEGATIVE) 07/13/18 18:35 Urine Ketones 1+ (NEGATIVE) 07/13/18 18:35 Urine Occult Blood Negative (NEGATIVE) 07/13/18 18:35 Urine Nitrite Negative (NEGATIVE) 07/13/18 18:35 Urine Bilirubin Negative (NEGATIVE) 07/13/18 18:35 Urine Urobilinogen Normal (NORMAL) 12 18:35 Ur Leukocyte Esterase Negative (NEGATIVE) 07/13/18 18:35 Urine RBC 0-2 /HPF (NONE SEEN) 07/13/18 18:35 Urine WBC None seen /HPF (NONE SEEN) 07/13/18 18:35 Ur Squamous Epith Cells Moderate /HPF (NEGATIVE) 07/13/18 18:35 Urine Bacteria Negative /HPF (NEGATIVE) 07/13/18 18:35 Urine Mucus Few /HPF (NEGATIVE) 07/13/18 18:35 Ur Culture Indicated? No/not indicated 07/13/18 18:35 - Plan (1) Abdominal pain Status: Acute Plan: CONTINUE GENTLE IV HYDRATION, PAIN AND NAUSEA CONTROL. IV NS, REPEAT AM AMYLASE AND LIPASE, NPO. GB US, HIDA SCAN. VERIFY HOME MEDICATION. BP MONITORING, BS CONTROL (2) Nausea and vomiting Status: Acute (3) Acute hyponatremia Status: Acute (4) Acute pancreatitis Status: Acute Qualifiers: Pancreatitis type: unspecified pancreatitis type Acute pancreatitis complication: unspecified Qualified Code(s): K85.90 - Acute pancreatitis without necrosis or infection, unspecified
[2018-07-14 14:25] LABS: SODIUM 126 mmol/L (136-145)
[2018-07-14] MEDS: DEMEROL INJ IVP PRN ×2 (14:44→21:10)
[2018-07-15] MEDS: DEMEROL INJ IVP PRN (02:50)
[2018-07-15] MEDS: NS 1000 ML 1,000 ML IV SCH ×5 (02:51→23:27)
[2018-07-15 05:23] LABS: AMYLASE 31 Units/L (25-115); LIPASE 447 Units/L (73-393)
[2018-07-15 05:27] LABS: BASOPHILS % (AUTO) 0.6 % (0.2-1.0); EOSINOPHILS # (AUTO) 0.1 x10^3/uL (0.0-0.2); EOSINOPHILS % (AUTO) 1.7 % (0.9-2.9); HEMATOCRIT 36.7 % (36.0-47.0); HEMOGLOBIN 12.7 g/dL (12.0-16.0); MEAN CORPUSCULAR HEMOGLOBIN 32.3 pg (27.0-34.0); MEAN CORPUSCULAR HGB CONC 34.7 g/dL (33.0-35.0); MEAN CORPUSCULAR VOLUME 93.1 fL (80.0-100.0); MEAN PLATELET VOLUME 8.8 fL (7.4-11.0); MONOCYTES # (AUTO) 0.5 x10^3/uL (0.3-0.8); MONOCYTES % (AUTO) 6.1 % (0.0-13.0); NEUTROPHILS # (AUTO) 5.4 x10^3/uL (2.2-4.8); NEUTROPHILS % (AUTO) 66.6 % (42.0-75.0); PLATELET COUNT 233 X10^3/uL (150.0-450.0); RED BLOOD COUNT 3.94 X10^6/uL (3.5-5.4); RED CELL DISTRIBUTION WIDTH 12.8 % (11.6-16.5); WHITE BLOOD COUNT 8.1 X10^3/uL (3.6-10.0)
[2018-07-15 05:33] LABS: ALANINE AMINOTRANSFERASE 16 Units/L (12-78); ALBUMIN 2.8 g/dL (3.4-5.0); ALKALINE PHOSPHATASE 44 Units/L (46-116); ASPARTATE AMINO TRANSFERASE 10 Units/L (15-37); BLOOD UREA NITROGEN 4 mg/dL (7-18); CALCIUM 7.4 mg/dL (8.5-10.1); CARBON DIOXIDE 22.7 mmol/L (21-32); CHLORIDE 106 mmol/L (98-107); COR CA(FOR HYPOALB) 8.4 mg/dL (8.5-10.1); COR NA(FOR HYPERGLY) 139 mmol/L (136-145); CREATININE 0.36 mg/dL (0.55-1.02); SODIUM 138 mmol/L (136-145); TOTAL PROTEIN 6.1 g/dL (6.4-8.2); eGFR NON BLACK RACES > 60 (>60)
[2018-07-15] MEDS ORDERED: K-DUR TAB 20 MEQ PO PRN (06:31)
[2018-07-15] MEDS ORDERED: KLOR-CON PO PRN (06:31)
[2018-07-15] MEDS ORDERED: POTASSIUM CHL 40 MEQ/NS 0.45% 500 ML IV PRN (06:31)
[2018-07-15] MEDS ORDERED: K-RIDER 10 MEQ/NS 100 ML 10 MEQ/100 ML BAG IV PRN (06:31)
[2018-07-15] MEDS ORDERED: MICRO K EXTEN CAP 10 MEQ PO PRN (06:31)
[2018-07-15] MEDS ORDERED: POTASSIUM CHL 60 MEQ/NS 0.45% 500 ML IV PRN (06:31)
[2018-07-15] MEDS ORDERED: POTASSIUM CHLORIDE LIQ 20 MEQ UDC PO PRN (06:31)
[2018-07-15] MEDS ORDERED: MAGNESIUM SULFATE 1 GRAM/100 mL PREMIX 1 GM/100 ML BAG IV PRN (06:31)
[2018-07-15] MEDS: PEPCID 20 MG IV PREMIX* 20 MG/50 ML BAG IV SCH ×2 (09:16→20:57)
--- NOTE | 2018-07-15 14:32 | NM ---
Nuclear medicine hepatobiliary scan with ejection fraction Clinical indication: Abdominal pain Technique: The patient received a dose of 5.6 mCi of technetium Choletec. Dynamic imaging was performed over the course of 60 minutes within the right upper quadrant. The patient then drank 8 oz of Ensure Plus to stimulate the gallbladder and evaluate the ejection fraction. Findings: There is rapid accumulation of radiotracer throughout the liver parenchyma with early visualization of the gallbladder, common bile duct and small bowel. There is no evidence of cystic duct or biliary obstruction. The gallbladder ejection fraction is 54%. Impression: Normal HIDA scan. Reported By:
[2018-07-15] MEDS ORDERED: PREVNAR 13 IM ONE (14:49)
[2018-07-15] MEDS ORDERED: FLUVIRIN IM ONE (14:49)
[2018-07-16 05:15] LABS: BASOPHILS % (AUTO) 0.5 % (0.2-1.0); EOSINOPHILS # (AUTO) 0.2 x10^3/uL (0.0-0.2); EOSINOPHILS % (AUTO) 2.4 % (0.9-2.9); HEMATOCRIT 38.2 % (36.0-47.0); HEMOGLOBIN 13.2 g/dL (12.0-16.0); LYMPHOCYTES # (AUTO) 2.2 X10^3/uL (1.3-2.9); LYMPHOCYTES % (AUTO) 28.8 % (21.0-51.0); MEAN CORPUSCULAR HEMOGLOBIN 32.2 pg (27.0-34.0); MEAN CORPUSCULAR HGB CONC 34.4 g/dL (33.0-35.0); MEAN CORPUSCULAR VOLUME 93.4 fL (80.0-100.0); MEAN PLATELET VOLUME 8.8 fL (7.4-11.0); MONOCYTES # (AUTO) 0.5 x10^3/uL (0.3-0.8); MONOCYTES % (AUTO) 6.1 % (0.0-13.0); NEUTROPHILS # (AUTO) 4.7 x10^3/uL (2.2-4.8); NEUTROPHILS % (AUTO) 62.2 % (42.0-75.0); PLATELET COUNT 256 X10^3/uL (150.0-450.0); RED BLOOD COUNT 4.09 X10^6/uL (3.5-5.4); RED CELL DISTRIBUTION WIDTH 12.8 % (11.6-16.5); WHITE BLOOD COUNT 7.6 X10^3/uL (3.6-10.0)
[2018-07-16 05:36] LABS: ALANINE AMINOTRANSFERASE 17 Units/L (12-78); ALBUMIN 2.9 g/dL (3.4-5.0); ALKALINE PHOSPHATASE 49 Units/L (46-116); AMYLASE 20 Units/L (25-115); ASPARTATE AMINO TRANSFERASE 9 Units/L (15-37); BLOOD UREA NITROGEN 5 mg/dL (7-18); CALCIUM 8.6 mg/dL (8.5-10.1); CARBON DIOXIDE 23.1 mmol/L (21-32); CHLORIDE 104 mmol/L (98-107); COR CA(FOR HYPOALB) 9.5 mg/dL (8.5-10.1); COR NA(FOR HYPERGLY) 139 mmol/L (136-145); CREATININE 0.48 mg/dL (0.55-1.02); LIPASE 306 Units/L (73-393); SODIUM 137 mmol/L (136-145); TOTAL PROTEIN 6.4 g/dL (6.4-8.2); eGFR NON BLACK RACES > 60 (>60)
[2018-07-16] MEDS ORDERED: CELEXA PO SCH (09:00)
[2018-07-16] MEDS: PEPCID 20 MG IV PREMIX* 20 MG/50 ML BAG IV SCH (09:20)
[2018-07-16 10:16] VITALS: BP 129/77
== END 2018-07-16 11:20 | disposition home or self-care (01) | DRG 439 ==
LOC: ER 18:16 → ICU 22:39 → MED/SURG 07-14 23:20
PROVIDERS: ADMIT Internal Medicine; ATTEND Internal Medicine
DX: E11.65 Type 2 diabetes mellitus with hyperglycemia; R74.8 Abnormal levels of other serum enzymes; K85.80 Other acute pancreatitis without necrosis or infection; E87.1 Hypo-osmolality and hyponatremia; I10 Essential (primary) hypertension; E66.8 Other obesity; R11.2 Nausea with vomiting, unspecified; R10.84 Generalized abdominal pain
CPT/HCPCS: 36415; 74176; 76705; 78227; 80053; 81001; 82150; 83036; 83690; 83735; 85025; 96365; 96367; 96374; 96375; 99283; 99284; A4222; S0028; J1170; J2175; J2270; J2405; J7030